=== PATIENT | female | born 1990 | race Caucasian/White ===

== ENCOUNTER 2017-10-13 12:52 | Inpatient (IN) | payer OTHER ==
[2017-10-13] MEDS: LACTATED RINGER'S 1,000 ML IV ×2 (15:15→22:08)
[2017-10-13 15:34] LABS: ADD MAN DIFF? NO
[2017-10-13 16:43] LABS: BASOPHILS % 0.4 % (0.0-2.0); EOSINOPHILS % 0.5 % (0.0-7.0); HEMATOCRIT 28.6 % (37.0-47.0); HEMOGLOBIN 8.9 g/dl (12.0-16.0); LYMPHOCYTES # 1.6 10^3/ul (0.8-2.9); LYMPHOCYTES % 28.3 % (15.0-51.0); MEAN CORPUSCULAR HEMOGLOBIN 24.7 pg (29.0-33.0); MEAN CORPUSCULAR HGB CONC 31.1 g/dl (32.0-37.0); MEAN CORPUSCULAR VOLUME 79.2 fl (82.0-101.0); MEAN PLATELET VOLUME 11.5 fl (7.4-10.4); MONOCYTE # 0.3 10^3/ul (0.3-0.9); MONOCYTES % 5.4 % (0.0-11.0); NEUTROPHIL # 3.6 10^3/ul (1.6-7.5); NEUTROPHILS % 64.9 % (39.0-77.0); PLATELET COUNT 270 10^3/UL (140-415); RED BLOOD COUNT 3.61 10^6/ul (4.20-5.40); RED CELL DISTRIBUTION WIDTH 14.6 % (11.5-14.5)
[2017-10-13 16:43] LABS: WHITE BLOOD COUNT 5.5 10^3/ul (4.8-10.8)
[2017-10-14] MEDS: LACTATED RINGER'S 1,000 ML IV (06:09)
== END 2017-10-14 15:20 | disposition home or self-care (01) | DRG 781 ==
LOC: OBT 12:52 → L-D 12:52 → OBT 14:40 → L-D 14:40 → PP1 16:30
PROVIDERS: Obstetrics & Gynecology
DX: O26.893 Other specified pregnancy related conditions, third trimester (principal); Z3A.30 30 weeks gestation of pregnancy; S39.91XA Unspecified injury of abdomen, initial encounter; W18.30XA Fall on same level, unspecified, initial encounter; Y92.009 Unspecified place in unspecified non-institutional (private) residence as the place of occurrence of the external cause
CPT/HCPCS: 76816; 76817; 76818; 85025; 85460; 86850; 86900; 86901

== ENCOUNTER 2017-12-13 18:14 | Inpatient (IN) | payer OTHER ==
[2017-12-13] MEDS ORDERED: IBUPROFEN 600 MG TAB PO (20:30)
[2017-12-13] MEDS ORDERED: MISOPROSTOL 200 MCG TAB PR (20:30)
[2017-12-13] MEDS ORDERED: METHYLERGONOVINE 0.2 MG INJ IM (20:30)
[2017-12-13] MEDS ORDERED: CARBOPROST 250 MCG INJ IM (20:30)
[2017-12-13] MEDS ORDERED: LIDOCAINE 1% (MPF) 30 ML INJ INJ (20:30)
[2017-12-13] MEDS ORDERED: MINERAL OIL LIGHT 10 ML VIAL TOP (20:30)
[2017-12-13] MEDS ORDERED: OXYTOCIN 30 UNITS/LR 500 ML IV ×3 (20:30)
[2017-12-13] MEDS: LACTATED RINGER'S 1,000 ML IV* ×2 (20:39→22:03)
[2017-12-13 20:49] LABS: ADD MAN DIFF? NO
[2017-12-13 20:50] LABS: BASOPHILS % 0.2 % (0.0-2.0); EOSINOPHILS % 0.5 % (0.0-7.0); HEMOGLOBIN 8.8 g/dl (12.0-16.0); LYMPHOCYTES # 2.3 10^3/ul (0.8-2.9); LYMPHOCYTES % 36.5 % (15.0-51.0); MEAN CORPUSCULAR HEMOGLOBIN 22.8 pg (29.0-33.0); MEAN CORPUSCULAR HGB CONC 30.3 g/dl (32.0-37.0); MEAN CORPUSCULAR VOLUME 75.1 fl (82.0-101.0); MEAN PLATELET VOLUME 11.2 fl (7.4-10.4); MONOCYTE # 0.5 10^3/ul (0.3-0.9); NEUTROPHIL # 3.5 10^3/ul (1.6-7.5); NEUTROPHILS % 54.5 % (39.0-77.0); PLATELET COUNT 263 10^3/UL (140-415); RED BLOOD COUNT 3.86 10^6/ul (4.20-5.40); RED CELL DISTRIBUTION WIDTH 16.5 % (11.5-14.5)
[2017-12-13 20:50] LABS: WHITE BLOOD COUNT 6.4 10^3/ul (4.8-10.8)
[2017-12-13 21:15] LABS: INR 0.91; PROTIME 12.3 Sec (11.9-14.9)
[2017-12-13 21:16] LABS: PARTIAL THROMBOPLASTIN TIME 24.6 Sec (25.0-35.0)
[2017-12-13] MEDS: AMPICILLIN 2 GM/NS (PMX) 100 ML IV (22:05)
[2017-12-13 22:43] LABS: AMPHETAMINE/METHAMPHETAMINE Negative (NEGATIVE); BARBITURATES Negative (NEGATIVE); BENZODIAZEPINES Negative (NEGATIVE); CANNABINOIDS Negative (NEGATIVE); COCAINE Negative (NEGATIVE); OPIATES Negative (NEGATIVE)
[2017-12-13 23:05] LABS: HEPATITIS B SURFACE ANTIGEN NEGATIVE (NEGATIVE)
[2017-12-13] MEDS: BUTORPHANOL 2 MG INJ IV (23:38)
[2017-12-14] MEDS: AMPICILLIN 1 GM/NS (PMX) 50 ML IV ×3 (02:08→09:50)
[2017-12-14] MEDS: BUTORPHANOL 2 MG INJ IV (02:14)
[2017-12-14] MEDS: OXYTOCIN 30 UNITS/LR 500 ML IV ×3 (05:56→18:25)
[2017-12-14] MEDS: LACTATED RINGER'S 1,000 ML IV* (05:59)
[2017-12-14] MEDS ORDERED: FENTAnyl 2MCG/ML-ROPIV 0.2% 100 ML (07:49)
[2017-12-14] MEDS ORDERED: FENTAnyl 2MCG/ML-ROPIV 0.2% 100 ML BAG EPI (08:30)
[2017-12-14] MEDS ORDERED: DIPHENHYDRAMINE 50 MG INJ IV (08:30)
[2017-12-14] MEDS ORDERED: ONDANSETRON 4 MG INJ IV ×3 (08:30→18:30)
[2017-12-14] MEDS ORDERED: NALOXONE (0.4 MG/ML) INJ IV (08:30)
[2017-12-14] MEDS ORDERED: OXYCODONE/ASPIRIN (4.88/325) TAB PO ×4 (12:00→18:30)
[2017-12-14] MEDS: IBUPROFEN 600 MG TAB PO ×3 (12:00→18:30)
[2017-12-14] MEDS ORDERED: HYDROCODONE/APAP (5/325) TAB PO ×4 (12:00→18:30)
[2017-12-14] MEDS ORDERED: DIBUCAINE 1% 30 GM OINT PR ×2 (12:00→18:30)
[2017-12-14] MEDS ORDERED: ACETAMINOPHEN 325 MG TAB PO ×2 (12:00→18:30)
[2017-12-14] MEDS: WITCH HAZEL/GLYCERIN PAD PR (18:13)
[2017-12-14] MEDS: BENZOCAINE 20% 56 ML SPRAY TOP (18:14)
[2017-12-14] MEDS: LANOLIN 7 GM TUBE TOP (18:15)
[2017-12-14] MEDS ORDERED: WITCH HAZEL/GLYCERIN PAD PR (18:30)
[2017-12-14] MEDS ORDERED: LANOLIN 7 GM TUBE TOP (18:30)
[2017-12-14] MEDS ORDERED: BENZOCAINE 20% 56 ML SPRAY TOP (18:30)
[2017-12-14 19:54] LABS: RAPID PLASMA REAGIN NONREACTIVE (NR)
[2017-12-14] MEDS ORDERED: SENNA/DOCUSATE NA (8.6MG/50MG) TAB PO (21:00)
[2017-12-14] MEDS: SENNA/DOCUSATE NA (8.6MG/50MG) TAB PO (21:31)
[2017-12-15] MEDS: IBUPROFEN 600 MG TAB PO ×4 (06:00→18:00)
[2017-12-15 08:21] LABS: ADD MAN DIFF? NO
[2017-12-15 08:27] LABS: WHITE BLOOD COUNT 6.1 10^3/ul (4.8-10.8)
[2017-12-15 08:27] LABS: BASOPHILS % 0.2 % (0.0-2.0); EOSINOPHILS # 0.1 10^3/ul (0.0-0.5); EOSINOPHILS % 1.3 % (0.0-7.0); HEMATOCRIT 25.6 % (37.0-47.0); HEMOGLOBIN 7.6 g/dl (12.0-16.0); LYMPHOCYTES # 1.9 10^3/ul (0.8-2.9); MEAN CORPUSCULAR HGB CONC 29.7 g/dl (32.0-37.0); MEAN CORPUSCULAR VOLUME 77.6 fl (82.0-101.0); MEAN PLATELET VOLUME 11.7 fl (7.4-10.4); MONOCYTE # 0.3 10^3/ul (0.3-0.9); MONOCYTES % 4.5 % (0.0-11.0); NEUTROPHIL # 3.7 10^3/ul (1.6-7.5); NEUTROPHILS % 61.5 % (39.0-77.0); PLATELET COUNT 197 10^3/UL (140-415); RED CELL DISTRIBUTION WIDTH 16.1 % (11.5-14.5)
[2017-12-15] MEDS: SENNA/DOCUSATE NA (8.6MG/50MG) TAB PO ×2 (08:54→21:26)
[2017-12-16] MEDS: IBUPROFEN 600 MG TAB PO ×3 (06:00→12:00)
[2017-12-16] MEDS: SENNA/DOCUSATE NA (8.6MG/50MG) TAB PO (08:41)
[2017-12-16] MEDS ORDERED: MEASLES,MUMPS,RUBELLA VACCINE INJ SC* (09:00)
== END 2017-12-16 15:23 | disposition home or self-care (01) | DRG 775 ==
LOC: OBT 18:14 → PP1 12-14 12:00 → L-D 18:19 → OBT 20:01 → L-D 20:01
PROVIDERS: Obstetrics & Gynecology
PROC: 10E0XZZ Delivery of Products of Conception, External Approach (ICD-10-PCS; principal; 2017-12-14)
PROC: 0HQ9XZZ Repair Perineum Skin, External Approach (ICD-10-PCS; 2017-12-14)
DX: O99.214 Obesity complicating childbirth (principal); Z68.41 Body mass index [BMI] 40.0-44.9, adult; Z37.0 Single live birth; E66.01 Morbid (severe) obesity due to excess calories; Z3A.39 39 weeks gestation of pregnancy; O70.0 First degree perineal laceration during delivery; O69.81X0 Labor and delivery complicated by cord around neck, without compression, not applicable or unspecified
CPT/HCPCS: 62319; 76815; 80307; 85025; 85610; 85730; 86592; 86850; 86900; 86901; 87340